=== PATIENT | female | born 1990 | race Caucasian/White ===

== ENCOUNTER 2020-10-22 11:42 | Emergency (ER) | payer BC, SELFPAY ==
[2020-10-22 11:55] VITALS: BP 128/81; PULSE 75; RESP 16; TEMP 36.5; O2SAT 98
--- NOTE | 2020-10-22 12:40 | ED.GENADULT ---
HPI - General Adult General Chief complaint: Ear <Chris Orona PA-C - Last Filed: 10/22/20 12:45> Stated complaint: Ear ache <DANIEL Fleming Last Filed: 10/22/20 12:45> Time Seen by Provider: 10/22/20 12:00 <DANIEL Fleming Last Filed: 10/22/20 12:45> Source: patient <Chris Orona PA-C - Last Filed: 10/22/20 12:45> Mode of arrival: ambulatory <DANIEL Fleming Last Filed: 10/22/20 12:45> Limitations: no limitations <DANIEL Fleming Last Filed: 10/22/20 12:45> History of Present Illness HPI narrative: Patient 30-year-old female who presents with intermittent right ear pain and congestion for the last month off and on has not seen anybody for this has been taking an antihistamine only notes aching pain to the right. Patient denies other URI symptoms does not appear to be distressed or uncomfortable on arrival <Chris Orona PA-C - Last Filed: 10/22/20 12:45> Related Data Home medications: Home Medications Medication Instructions Recorded Confirmed cetirizine [Zyrtec] 10 mg PO DAILY 10/22/20 <DANIEL Fleming Last Filed: 10/22/20 12:45> Allergies/adverse reactions: Allergies Allergy/AdvReac Type Severity Reaction Status Date / Time No Known Allergies Allergy Verified 10/22/20 11:58 <Chris Orona PA-C - Last Filed: 10/22/20 12:45> Review of Systems Review of Systems: All systems reviewed & are unremarkable except as noted in HPI and below <Chris Orona PA-C - Last Filed: 10/22/20 12:45> PMFSH Social History Social History: Social History Gender identity (if verbalized by the patient): Female <DANIEL Fleming Last Filed: 10/22/20 12:45> Exam Narrative: Exam Narrative: GENERAL: Well-appearing, well-nourished, and in no acute distress. HEAD: Normocephalic, atraumatic. EYES: PERRLA and EOMI. ENT: Nares clear, no rhinorrhea or epistaxis. Mucous membranes moist. Oropharynx without tonsillar hypertrophy exudate or other lesions. Bilateral TMs pearly mary nonbulging NECK: Supple. No adenopathy or masses. CHEST: Clear to auscultation. No respiratory distress. No wheezes rales or rhonchi HEART: Regular rate and rhythm. No murmur heard. SKIN: Warm, dry, no rash. NEURO: No focal deficits. Alert and oriented x3. PSYCH: Normal mood and affect. <Chris Orona PA-C - Last Filed: 10/22/20 12:45> Course Course Emergency Course: Patient in the room in no distress aware of case findings treatment plan diagnosis agreeing to follow with ENT and primary care felt appropriate for outpatient reevaluation <DANIEL Fleming Last Filed: 10/22/20 12:45> Vital Signs Vital signs: Vital Signs Temperature 36.5 C 10/22/20 11:55 Pulse Rate 75 10/22/20 11:55 Respiratory Rate 16 10/22/20 11:55 Blood Pressure 128/81 10/22/20 11:55 Pulse Oximetry 98 10/22/20 11:55 Temperature 37.2 C 10/22/20 13:28 Pulse Rate 78 10/22/20 13:28 Respiratory Rate 16 10/22/20 13:28 Blood Pressure 112/72 10/22/20 13:28 Pulse Oximetry 98 10/22/20 11:55 <DANIEL Fleming Last Filed: 10/22/20 12:45> Vital Signs Temperature 36.5 C 10/22/20 11:55 Pulse Rate 75 10/22/20 11:55 Respiratory Rate 16 10/22/20 11:55 Blood Pressure 128/81 10/22/20 11:55 Pulse Oximetry 98 10/22/20 11:55 Temperature 37.2 C 10/22/20 13:28 Pulse Rate 78 10/22/20 13:28 Respiratory Rate 16 10/22/20 13:28 Blood Pressure 112/72 10/22/20 13:28 Pulse Oximetry 98 10/22/20 11:55 <Karla Field MD - Last Filed: 10/22/20 13:55> Medical Decision Making MDM Narrative Medical decision making narrative: Patient in the room no distress presented with right ear pain no infection or other abnormalities have been seen <Chris Orona PA-C - Last Filed: 10/22/20 12:45> Vital S
[2020-10-22 13:28] VITALS: BP 112/72; PULSE 78; RESP 16; TEMP 37.2
== END 2020-10-22 13:32 | disposition home or self-care (01) ==
PROVIDERS: Emergency Provider Emergency Medicine
DX: H92.01 Otalgia, right ear (principal)
CPT/HCPCS: 99283

== ENCOUNTER 2020-12-15 15:23 | Emergency (ER) | payer BC, SELFPAY ==
--- NOTE | ~2020-12-15 | CT_ITS ---
EXAMINATION: CT brain & sinus wo con DATE: 12/15/2020 20:18 INDICATION: Frontal headache. TECHNIQUE: Computed tomography (CT) of the head was performed without intravenous contrast. CT of the paranasal sinuses was performed without intravenous contrast. The dose-length product was 832.33 mGy -cm. COMPARISON: None. FINDINGS: Head CT: There is no intracranial hemorrhage, acute infarction, or abnormal intracranial mass lesion. The vent ricles are normal in size. The mastoid air cells are normal. Sinuses CT: There is mild mucosal thickening in the maxillary sinuses. There is moderate mucosal thickening in th e ethmoid sinuses. There is near complete opacification of right frontal sinus and mild mucosal thick ening in left frontal sinus. There is sclerosis of the romeo of the right frontal sinus, consistent w ith chronic sinusitis. There is moderate mucosal thickening in left sphenoid sinus with dependent flu id. There is rightward deviation of the nasal septum. Right ostiomeatal unit is occluded at the maxil alexia ostium, infundibulum, and hiatus semilunaris. Left ostiomeatal unit is occluded at the maxillary ostium and infundibulum. There is a Nick cell on the left. Left middle turbinate is paradoxical. T here is pneumatization of the vertical lamina of the middle turbinates. IMPRESSION: 1. Normal brain. 2. Chronic sinusitis. Reviewed, dictated and finalized at location A. [employer]
[2020-12-15 16:43] VITALS: BP 141/96; PULSE 79; RESP 18; TEMP 36.4; O2SAT 100
[2020-12-15 20:35] LABS: Basophils Absolute Auto 0.1 K/mm3 (0.0-0.1); Basophils Percent Auto 0.6 % (0.2-1.2); Eosinophils Absolute Auto 0.3 K/mm3 (0-0.3); Eosinophils Percent Auto 2.4 % (0-4.4); Hematocrit 41.8 % (37.0-47.0); Hemoglobin 14.3 g/dL (12.0-15.0); Immature Granulocyte Absolute 0.04 K/mm3 (0.00-0.031); Immature Granulocyte Percent A 0.3 % (0-0.5); Lymphocytes Absolute Auto 2.64 K/mm3 (0.9-3.2); Lymphocytes Percent Auto 18.8 % (18.3-44.2); Mean Corpuscular HGB Conc 34.2 g/dl (32-36); Mean Corpuscular Hemoglobin 31.2 pg (26-34); Mean Corpuscular Volume 91.1 fl (80-100); Monocytes Percent Auto 7.1 % (2.6-8.5); Neutrophils Absolute Auto 9.9 K/mm3 (1.3-6.7); Neutrophils Percent Auto 70.8 % (45.5-73.1); Platelet Count Result 314 k/mm3 (150-375); Red Blood Count 4.59 M/mm3 (4.2-5.4); Red Cell Distribution Width 11.9 % (11.5-14.5)
--- NOTE | 2020-12-15 21:00 | ED.HA ---
HPI - Headache General Chief Complaint: Headache Stated Complaint: CT Scan Request from ENT Time Seen by Provider: 12/15/20 19:49 Source: patient Mode of arrival: ambulatory Limitations: no limitations History of Present Illness HPI Narrative: 30-year-old female Her complaining of frontal headaches This is been a recurrent problem for a while, that she intermittently sees ENT for She was in the office today and it was recommended that she should come to the ER to get a sinus CT scan so that it could be done well her sinuses were inflamed according to the patient She complains that she chronically has some greenish drainage and facial pain, the pain sometimes radiates to her ears, and that every time her ears are looked at they look fine She does take Zyrtec but does not take it reliably every day She does not have a fever or neck pain or any neurologic symptoms MD elicited complaint: headache Related Data Home Medications Medication Instructions Recorded Confirmed cetirizine [Zyrtec] 10 mg PO DAILY 10/22/20 12/15/20 Allergies Allergy/AdvReac Type Severity Reaction Status Date / Time No Known Allergies Allergy Verified 12/15/20 16:46 Review of Systems Review of Systems: All systems reviewed & are unremarkable except as noted in HPI and below Constitutional: Constitutional: Denies fever(s) and Denies weakness Eyes: Eyes: Denies no additional eye complaints and Denies change in vision ENT: Denies epistaxis and Reports nasal congestion Respiratory: Respiratory: Denies cough and Denies dyspnea Neurologic: Denies vertigo, Denies syncope, Denies focal weakness and Denies numbness [facility] Social History Social History (Updated 11/02/20 @ 13:28 by Jenni Slade MA) Smoking status: Never smoker Gender identity (if verbalized by the patient): Female Exam Const: General: no acute distress and alert Orientation/consciousness: patient oriented x3 HENMT: Head: normal to inspection Ears: TM's normal bilaterally General nose exam: Normal external nose present Face and sinus: sinus tenderness frontal and maxillary Mouth: Yes Normal oral and palatal mucosa present Eyes: Pupils: Equal, round and reactive pupils present EOM: EOMs intact bilaterally Neck: Neck: normal visual inspection and no lymphadenopathy Resp: Effort & Inspection: normal respiratory effort and not tachypneic Course Course Emergency Course: Discussed with patient, I would recommend lifelong antihistamines and have her discuss with her ENT any other further therapeutics Vital Signs Vital signs: Vital Signs Temperature 36.4 C 12/15/20 16:43 Pulse Rate 79 12/15/20 16:43 Respiratory Rate 18 12/15/20 16:43 Blood Pressure 141/96 H 12/15/20 16:43 Pulse Oximetry 100 12/15/20 16:43 Temperature 36.4 C 12/15/20 16:43 Pulse Rate 79 12/15/20 16:43 Respiratory Rate 18 12/15/20 16:43 Blood Pressure 141/96 H 12/15/20 16:43 Pulse Oximetry 100 12/15/20 16:43 MDM - Headache Lab Data Result diagrams: 12/15/20 20:31 Labs: Lab Results 12/15/20 Range/Units 20:31 WBC 14.0 H (4.5-10.0) K/mm3 RBC 4.59 (4.2-5.4) M/mm3 Hgb 14.3 (12.0-15.0) g/dL Hct 41.8 (37.0-47.0) % MCV 91.1 (80-100) fl MCH 31.2 (26-34) pg MCHC 34.2 (32-36) g/dl RDW 11.9 (11.5-14.5) % Plt Count 314 (150-375) k/mm3 MPV 9.0 (7.4-10.4) fl Immature Gran % (Auto) 0.3 (0-0.5) % Neut % (Auto) 70.8 (45.5-73.1) % Lymph % (Auto) 18.8 (18.3-44.2) % [place] % (Auto) 7.1 (2.6-8.5) % Eos % (Auto) 2.4 (0-4.4) % Baso % (Auto) 0.6 (0.2-1.2) % Lymph # (Auto) 2.64 (0.9-3.2) K/mm3 [place] # (Auto) 1.0 H (0.1-0.6) K/mm3 Eos # (Auto) 0.3 (0-0.3) K/mm3 Baso # (Auto) 0.1 (0.0-0.1) K/mm3 Abs Immat Gran (auto) 0.04 H (0.00-0.031) K/mm3 Absolute Neuts (auto) 9.9 H (1.3-6.7) K/mm3 Absolute Nucleated RBC 0.0 (0.0-0.012) K/mm3 Nucleated RBC % 0.0 (0.0-0.2) % Imaging Data Rad
[2020-12-15 21:16] VITALS: BP 128/89; PULSE 78; RESP 16; TEMP 36.8; O2SAT 98
== END 2020-12-15 21:17 | disposition home or self-care (01) ==
PROVIDERS: Emergency Provider Emergency Medicine; PCP Otolaryngology
DX: J32.9 Chronic sinusitis, unspecified (principal)
CPT/HCPCS: 36415; 70450; 70486; 85025; 99284

== ENCOUNTER → 2021-01-25 04:29 | Outpatient (CLI) | payer BC, SELFPAY ==
[2021-01-25 19:03] LABS: SARS-CoV-2 RNA PCR Negative
== END ==
PROVIDERS: Visit Provider Otolaryngology
DX: Z01.812 Encounter for preprocedural laboratory examination (principal); Z20.822 Contact with and (suspected) exposure to COVID-19
CPT/HCPCS: C9803; U0003; U0005

== ENCOUNTER 2021-01-28 01:19 | Day surgery (SDC) | payer BC, SELFPAY ==
[2021-01-13 15:08] VITALS: BMI 27.3
--- NOTE | 2021-01-27 09:17 | PM.IMHP ---
H&P: HPI History of Present Illness Date/Time: 01/27/21 09:17 30-year-old female presents for planned surgical procedures. Reports no new changes in symptoms or medical history. Chief Complaint: Nasal obstruction, septal deviation, inferior turbinate hypertrophy, chronic sinusitis Review of Systems Constitutional: Constitutional: Denies fatigue, Denies fever(s) and Denies lethargy Eyes: Eyes: Denies blurry vision and Denies change in vision ENT: Reports as per HPI Cardiovascular: Cardiovascular: Denies chest pain Respiratory: Respiratory: Denies cough Endocrine: Endocrine: Denies fatigue Hematologic/Lymphatic: Hematologic/Lymphatic: Denies easy bleeding, Denies easy bruising and Denies lymphadenopathy Allergic/Immunologic: Allergic/Immunologic: Denies seasonal rhinorrhea [facility] Social History Social History (Updated 11/02/20 @ 13:28 by Jenni Slade MA) Smoking status: Never smoker Alcohol intake: current Substance use: never Substance use type: does not use Gender identity (if verbalized by the patient): Female Spiritual care concerns: No Meds Home Medications and Allergies Home Medications Medication Instructions Recorded Confirmed Type fluticasone furoate [Flonase 2 spray INTRANASAL DAILY #5.9 ml 10/22/20 01/13/21 Rx Sensimist] cetirizine [Zyrtec] 10 mg PO DAILY #90 tablet 12/15/20 01/13/21 Rx Allergies Allergy/AdvReac Type Severity Reaction Status Date / Time No Known Allergies Allergy Verified 01/13/21 15:06 Exam Const: General: cooperative, healthy appearing, comfortable, well developed and alert HENMT: Head: normal to inspection, normocephalic and atraumatic Ears: hearing grossly normal bilaterally, external ears normal, TM's normal bilaterally and EAC's normal General nose exam: Normal external nose present, Normal nares present, No nasal polyps present and Other nasal findings present ( Septal deviation inferior turbinate hypertrophy) Face and sinus: normal facial exam Mouth: Yes Normal oral and palatal mucosa present, Yes lip normal, Yes tongue normal, Yes oropharynx normal and Yes moist mucous membranes Teeth and gingiva: dentition normal and gingiva normal Throat: posterior oropharynx normal, tonsils normal and uvula midline Eyes: General: appearance normal, both eyes and all related structures Periorbital: periorbital findings normal Eyelids: eyelids normal Conjunctivae: conjunctivae normal Sclera: sclerae normal Neck: Neck: normal visual inspection, full ROM and no lymphadenopathy Thyroid: thyroid normal Lymphatic: no lymphadenopathy noted Resp: Effort & Inspection: normal respiratory effort and able to speak in complete sentences Cardio: Jugular venous distension: no JVD Neuro: Cranial nerves: Yes CN's II-XII intact bilaterally Assessment and Plan Assessment and plan (1) Facial pressure: Code(s): R44.8 - Other symptoms and signs involving general sensations and perceptions Status: Acute Assessment and Plan: plan is for the OR for bilateral endoscopic sinus surgery including maxillary antrostomies total ethmoidectomies frontal sinusotomies and sphenoidotomies as well as endoscopic assisted septoplasty and inferior turbinate reduction. The risks were discussed in great detail including bleeding infection change in vision blindness damage to brain CSF leak carotid injury stroke septal perforation and the need for further procedures. The patient voiced understanding of these risks and agreed. (2) Facial pain: Code(s): R51.9 - Headache, unspecified Status: Acute (3) Rhinorrhea: Code(s): J34.89 - Other specified disorders of nose and nasal sinuses Status: Acute (4) Chronic sinusitis: Code(s): J32.9 - Chronic sinusitis, unspecified Status: Acute (5) Nasal septal deviation: Code(s): J34.2 - Deviated nasal septum Status: Acute (6) Hypertrophy of both inferior nasal turbinat
[2021-01-28] VITALS (13 sets, daily range): BP systolic 103–127; BP diastolic 46–83; PULSE 68–98; RESP 14–20; TEMP 36.2–36.5; O2SAT 94–100
--- NOTE | 2021-01-28 07:16 | WPDHPUPDATE1 ---
History and Physical Update Update Date/Time: 01/28/21 07:16 History and Physical has been reviewed, including an updated exam of the patient. There are NO changes in the patient's condition. Risks, benefits, and alternatives have been discussed and questions answered. Patient agrees to proceed with procedure.
[2021-01-28] MEDS: ACETAMINOPHEN 500 MG TABLET 1000 MG PO (08:27)
[2021-01-28] MEDS: LACTATED RINGERS 1,000 ML 30 ML IV CONT ×3 (08:30→13:56)
--- NOTE | 2021-01-28 08:37 | P.PNAN_ITS ---
Anes - Initial Pre Proc Eval Procedure: Operation Date: 01/28/21 09:30 Proposed Procedures p Image Guided Bilateral Inferior Turbinectomy, Maxillary Antrostomy, Total Ethmoidectomy, - Steve Prasad MD s Septoplasty - Steve Prasad MD Date/Time: 01/28/21 08:37 Surgeon: Steve Prasad MD Pre Op Diagnosis: chronic sinusitis Patient Data Age: 30 Gender: F Height: 5 ft 2 in Weight: 68 kg Allergies Allergy/AdvReac Type Severity Reaction Status Date / Time No Known Allergies Allergy Verified 01/28/21 08:17 Home Medications Medication Instructions Recorded Confirmed Type fluticasone furoate [Flonase 2 spray INTRANASAL DAILY #5.9 ml 10/22/20 01/28/21 Rx Sensimist] cetirizine [Zyrtec] 10 mg PO DAILY #90 tablet 12/15/20 01/28/21 Rx Patient hx anesthesia problems: none Family hx anesthesia problems: none [facility] Past Medical History Medical History (Updated 01/28/21 @ 08:43 by Damon Garrido MD) Healthy adult Social History Social History (Updated 11/02/20 @ 13:28 by Jenni Slade MA) Smoking status: Never smoker Alcohol intake: current Alcohol use details: ONCE EVERY 6 MONTHS Substance use: never Substance use type: does not use Living arrangements: with friend(s) Gender identity (if verbalized by the patient): Female Spiritual care concerns: No Anes - Eval Final PreProcedure Day of Procedure 01/28/21 08:37 Patient weight: normal Heart: regular rate and rhythm Lungs: clear to auscultation Airway: Mallampati scale class II Neurological: alert and oriented Last oral intake: >/= 8 hours ASA classification: I Emergent: no Anesthetic plan: proceed Anesthesia type and monitoring: general ETT and standard monitoring Informed Consent: The patient's anesthetic plan and its attendant risks and benefits were discussed with the patient/family/POA. Questions were solicited and answers provided to the satisfaction of the patient/family/POA.
[2021-01-28] MEDS: ceFAZolin 2 GM/D5W 50 ML 2 GM/50 ML BAG IVPB (09:21)
[2021-01-28] MEDS: OXYMETAZOLINE HCL 0.05% NAS 15 ML BTL (*BKC) 1 SPRAY NASAL (10:03)
[2021-01-28] MEDS: LIDO 1%/EPINEPHRINE 1:100,000 50 ML VIAL INFILTRATE (10:04)
[2021-01-28] MEDS: fentaNYL CITRATE INJ (*CRX) 100 MCG/2 ML VIAL 25 MCG IV PUSH ×5 (13:11→13:55)
--- NOTE | 2021-01-28 13:17 | P.OP_ITS ---
Procedure Note - Detailed Date of procedure: 01/28/21 Pre-op diagnosis: chronic sinusitis Nasal congestion Nasal obstruction Inferior turbinate hypertrophy Septal deviation Post-op diagnosis: same Procedure performed: 1. Endoscopic assisted septoplasty 2. Inferior turbinate reduction with outfracture submucosally 3. Endoscopic bilateral maxillary antrostomies 4. Endoscopic bilateral total ethmoidectomies 5. Endoscopic sphenoidotomies 6. Endoscopic frontal sinusotomies 7. Use of stereotactic image guidance Description of procedure: The patient was correctly identified and consent was verified in the preoperative holding area. The patient was then brought to the operating room and a time-out was performed. General anesthesia was induced and endotracheal tube was secured the patient's airway and taped to the left lower lip. The patient was then prepped and draped for the aforementioned procedure. Afrin-soaked pledgets were inserted into the bilateral nasal passages and allowed to sit for 5 minutes. 10 cc cc of 1% lidocaine with 1 100,000 parts epinephrine was then injected deep to the submucoperichondrial skis me into the submucoperichondrial septal plane and in the anterior inferior turbinates. The pledgets were removed and the image guidance was initiated. Under 0 degree endoscopic guidance the left middle turbinate was medialized with a [place]. Double ball tip probe with was used to perform an uncinectomy fracturing anteriorly. Backbiter was utilized to perform complete the uncinectomy. The left maxillary antrostomy was completed using micro debrider and straight through cut. Total ethmoidectomies performed with combination of microdebrider as well as Kerrison forceps. Sphenoid os was located using image guidance and entered with a J curette. [place] was utilized to widen it. Under 70 degree endoscopic guidance the frontal sinusotomy was completed and noted to be patent. Hemostasis was noted to be excellent. Similar procedures were performed on the right side following endoscopic septoplasty. The septoplasty was performed with a Nasim type incision on the left anterior nasal septum a left mucoperichondrial flap was dissected with no tear noted. Deviated septum from the left inferior and right posterior was performed with a combination of endoscopic scissors Jens Jensen forceps and Tisah forceps. Hemostasis was noted to be excellent. The anterior septal incision was closed with 3 interrupted 5 0 fast gut sutures. The middle turbinate anteriorly were removed during the frontal sinusotomies in a draf 2b fashion. There were cauterized with Bovie suction electrocautery. Novapak absorbable packing was placed lateral to the bilateral inferior turbinates stenting the medially as well as providing hemostasis. Vasques splints were placed with the airways removed and suctioned excuse me and sutured anteriorly using a 3 0 interrupted nylon suture. This marked the end of procedure. Care the patient was turned over to Anesthesiology. I performed all dictated portions. Surgeon: Steve Prasad MD Estimated blood loss (mL): 100 Packing: No Pathology: none sent Complications: No immediate complications Condition: stable Disposition: PACU
[2021-01-28] MEDS: ONDANSETRON INJ 4 MG/2 ML VIAL IV PUSH (14:19)
--- NOTE | 2021-01-28 15:00 | SUR.PHASEII ---
1445- Call to Dr. Sewell for anti nausea medications after 4MG IVP zofran given at 1419 with no relief to nausea. 1500- Obtained orders from Dr. Sewell for 25MG Benadryl IVP and scopolamine patch for patient's nausea at this time.
[2021-01-28] MEDS: diphenhydrAMINE HCl INJ 50 MG/ML VIAL 25 MG IV PUSH (15:09)
[2021-01-28] MEDS: SCOPOLAMINE 1.5 MG PATCH TRANSDERM (15:09)
[2021-01-28] MEDS: oxyCODONE HCL (*CRX) 5 MG TAB IR PO (15:57)
== END 2021-01-28 16:13 | disposition home or self-care (01) ==
PROVIDERS: Visit Provider Otolaryngology
PROC: (CPT 30520; principal; 2021-01-28 09:30)
PROC: (CPT 30520; 2021-01-28 09:30)
DX: J34.2 Deviated nasal septum (principal); J34.89 Other specified disorders of nose and nasal sinuses; J34.3 Hypertrophy of nasal turbinates; J32.9 Chronic sinusitis, unspecified; R51.9 Headache, unspecified
CPT/HCPCS: 30520; 30140; 31287; 31276; 61782; 31256; A9270; C9803; J0330; J0690; J1100; J1200; J2250; J2405; J2704; J3010; J7120; U0003; U0005

== ENCOUNTER 2021-02-25 09:40 | Emergency (ER) | payer BC, SELFPAY ==
[2021-02-25 09:58] VITALS: BP 107/68; PULSE 78; RESP 16; TEMP 36.6; O2SAT 99
--- NOTE | 2021-02-25 10:18 | ED.FEMALEGU ---
HPI - Female Genitourinary General Chief complaint: Urogenital-Female Stated complaint: UTI Time Seen by Provider: 02/25/21 10:18 Source: patient Mode of arrival: ambulatory Limitations: no limitations History of Present Illness HPI Narrative: Laura Ma is a 31 yo female with a PMH of sinusitis [facility] with complaints of a burning sensation on urination and difficulty urinating for the last day. She states the burning is really severe when she tries to urinate. she is on Augmentin from sinus surgery that was recently done, she will need some Diflucan at the end of all his antibiotics because she tends to get irritation in her genital area with use of antibiotics Related Data Home Medications Medication Instructions Recorded Confirmed amoxicillin-pot clavulanate 1 tablet PO BID 02/25/21 02/25/21 Allergies Allergy/AdvReac Type Severity Reaction Status Date / Time No Known Allergies Allergy Verified 02/25/21 10:14 Review of Systems Review of Systems: Narrative: CONSTITUTIONAL: Denies fever, chills, sweats. EYES: Denies visual changes, redness, discharge. ENT: Denies rhinorrhea, congestion, sore throat, otalgia. CARDIOVASCULAR: Denies chest pain, palpitations, edema. RESPIRATORY: Denies dyspnea, wheezing, cough GASTROINTESTINAL: Denies abdominal pain, nausea, vomiting, diarrhea. GENITOURINARY: has dysuria, hematuria, abnormal discharge SKIN: Denies rash or itching. NEUROLOGIC: Denies numbness, or focal weakness. PSYCHIATRIC: Denies anxiety or depression. [facility] Past Medical History Medical History Chronic sinusitis Healthy adult Social History Social History Smoking status: Never smoker Alcohol intake: current Substance use: never Substance use type: does not use Gender identity (if verbalized by the patient): Female Spiritual care concerns: No Comments At time of signature, I agree with nursing past medical, surgical, social and family history. There is no relevant family history pertinent to the presenting complaint. Exam Narrative: Exam Narrative: GENERAL: This is a well-nourished, well-developed patient, in mild distress. HEAD: normocephalic, atraumatic. EYES: Normal to get 8 out of here sclera clear/white. Vision is grossly intact. EARS: External ears normal, Hearing grossly intact. NOSE: External nose normal without nasal discharge, nares with redness, no rhinorrhea. THROAT: Mucous membranes moist, NECK: Neck supple, non-tender CARDIOVASCULAR: Regular rate and rhythm without murmurs, gallops, or rubs. RESPIRATORY: Clear to auscultation. Breath sounds equal bilaterally. No wheezes, rales, or rhonchi. GASTROINTESTINAL: Abdomen soft, non-tender, SKIN: warm, intact with no suspicious lesions or rash, good texture and turgor. NEURO: awake, alert, and oriented to person, place and time. There were no obvious focal neurologic abnormalities. Steady gait EXTREMITIES: Normal range of motion. BACK: Nontender without deformity Course Course Emergency Course: Patient here for symptoms of urinary tract infection including dysuria for the last 24 hours and she is unable to urinate without burning She is currently on Augmentin so she was started on Cipro for UTI and will give Diflucan at the end of the antibiotics to treat her vaginal irritation; she is also been instructed to get metronidazole [id number] if she has a lot of irritation prior to ending the antibiotic She is to push fluids - avoid irritants to urogenital area (wipes, etc) Vital Signs Vital signs: Vital Signs Temperature 97.8 F 02/25/21 09:58 Pulse Rate 78 02/25/21 09:58 Respiratory Rate 16 02/25/21 09:58 Blood Pressure 107/68 02/25/21 09:58 Pulse Oximetry 99 02/25/21 09:58 Temperature 97.8 F 02/25/21 09:58 Pulse Rate 78 02/25/21 09:58 Respiratory Rate 16
== END 2021-02-25 10:38 | disposition home or self-care (01) ==
PROVIDERS: Emergency Provider Nurse Practitioner
DX: N30.01 Acute cystitis with hematuria (principal)
CPT/HCPCS: 81003; 87086; 99213; G0463

== ENCOUNTER 2021-07-19 09:44 | Outpatient (CLI) | payer BC, SELFPAY | END 2021-07-19 09:45 | disposition home or self-care (01) | LOC: ANHAUDASC 09:47 | PROVIDERS: Visit Provider Otolaryngology | DX: H90.3 Sensorineural hearing loss, bilateral (principal) | CPT/HCPCS: 92557; 92567 ==

== ENCOUNTER 2021-09-09 11:11 | Emergency (ER) | payer BC, SELFPAY ==
[2021-09-09 11:49] VITALS: BP 122/72; PULSE 105; RESP 18; TEMP 37.1; O2SAT 99
[2021-09-09] MEDS: ONDANSETRON HCL ODT 4 MG TABLET 8 MG SUBLINGUAL (12:45)
[2021-09-09] MEDS: KETOROLAC (*BKC) 60 MG/2 ML VIAL IM (12:47)
--- NOTE | 2021-09-09 13:23 | ED.HA ---
HPI - Headache General Chief Complaint: Upper Respiratory Infection Stated Complaint: headache nausea Time Seen by Provider: 09/09/21 12:28 Source: patient, RN notes reviewed and old records reviewed Mode of arrival: ambulatory Limitations: no limitations History of Present Illness HPI Narrative: Patient presents today complaining of a headache since 3:00 this morning that is located in the frontal area with nausea, vomiting, and photophobia. She does have history of migraines. She was seen at her neurologist at [facility] 4 days ago. She was prescribed Topamax and Maxalt and these prescriptions were sent to her pharmacy. States that they were sent to a different pharmacy 20 minutes away and she has not yet been to pick them up as they were too far away, so she came here to [facility] for treatment instead of going to this pharmacy to pickle pumper her prescribed medications. States that this is not her worst headache ever. She currently rates her pain 10/10. She has been taking Tylenol, Excedrin, and aspirin. MD elicited complaint: migraine Related Data Home Medications Medication Instructions Recorded Confirmed rizatriptan mg 09/09/21 topiramate 09/09/21 Allergies Allergy/AdvReac Type Severity Reaction Status Date / Time No Known Allergies Allergy Verified 06/16/21 13:05 Review of Systems Review of Systems: CONSTITUTIONAL: Denies body aches, fever, chills, or sweats. EYES: Denies visual changes, redness, or discharge.+ Photophobia ENT: Denies rhinorrhea, congestion, sore throat, or otalgia. CARDIOVASCULAR: Denies chest pain, palpitations, or edema. RESPIRATORY: Denies cough or dyspnea. GASTROINTESTINAL: Denies abdominal pain, or diarrhea.+ Nausea and vomiting GENITOURINARY: Denies dysuria or hematuria. SKIN: Denies rash, itching, or wounds. MUSCULOSKELETAL: Denies back pain, joint pain, or myalgia. NEUROLOGIC: Denies numbness, tingling, or weakness.+ Headache PSYCH: Denies depression or anxiety. [facility] Past Medical History Medical History Chronic sinusitis Healthy adult Social History Social History Smoking status: Never smoker Alcohol intake: current Alcohol use details: ONCE EVERY 6 MONTHS Substance use: never Substance use type: does not use Gender identity (if verbalized by the patient): Female Spiritual care concerns: No Comments At time of signature, I have reviewed and agree with nursing past medical, surgical, social and family history unless otherwise noted. Please see nursing chart for further information. There is no relevant family history pertinent to the presenting complaint Exam Narrative: GENERAL: Well-appearing, well-nourished, and in no acute distress. HEAD: Normocephalic, atraumatic. EYES: EOMI. PERRL. No redness or drainage. Conjunctivae normal. ENT: Mucous membranes pink and moist. Nares clear. No rhinorrhea. TMs normal bilaterally. Throat normal. Uvula midline. NECK: Normal AROM. Supple. No lymphadenopathy. CHEST: No respiratory distress. EXTREMITIES: Normal range of motion. No edema. SKIN: Warm, dry, no rash. Capillary refill normal. Normal skin turgor. NEURO: No focal deficits. Alert and oriented x3. Gait steady. PSYCH: Normal affect. No signs of depression or anxiety. Course Course Emergency Course: 1326-states symptoms have improved after Toradol and Zofran. She is ready to be discharged. Vital Signs Vital signs: Vital Signs Temperature 98.8 F 09/09/21 11:49 Pulse Rate 105 H 09/09/21 11:49 Respiratory Rate 18 09/09/21 11:49 Blood Pressure 122/72 09/09/21 11:49 Pulse Oximetry 99 09/09/21 11:49 Temperature 98.8 F 09/09/21 11:49 Pulse Rate 105 H 09/09/21 11:49 Respiratory Rate 18 09/09/21 11:49 Blood Pressure 122/72 09/09/21 11:49 Pulse Oximetry 99 09/09/21 11:49 Reviewed. Pt
== END 2021-09-09 13:48 | disposition home or self-care (01) ==
PROVIDERS: Emergency Provider Nurse Practitioner
DX: G43.909 Migraine, unspecified, not intractable, without status migrainosus (principal)
CPT/HCPCS: 96372; 99213; A9270; G0463; J1885

== ENCOUNTER 2021-11-27 12:51 | Emergency (ER) | payer BC, SELFPAY ==
[2021-11-27 13:01] VITALS: BP 126/71; PULSE 82; RESP 16; TEMP 37.4; O2SAT 100
[2021-11-27 13:04] VITALS: BP 126/71; PULSE 82; RESP 16; TEMP 37.4; O2SAT 100
--- NOTE | 2021-11-27 13:47 | ED.GENADULT ---
HPI - General Adult General Chief complaint: Skin/Abscess/Foreign Body Stated complaint: sores on lips Source: patient Mode of arrival: ambulatory Limitations: no limitations History of Present Illness HPI narrative: Patient presents for evaluation of painful lesions to the left upper and lower lip since yesterday. She states she has a hx of herpes simplex infections in the past. She applied some carmex and abreva without improvement. No fever, chills, nausea, vomiting, difficulty breathing or swallowing. She does not smoke. She is sexually active with one female partner. No additional complaints or concerns. Related Data Home Medications Medication Instructions Recorded Confirmed rizatriptan 5 mg PO PRN PRN 09/09/21 11/27/21 topiramate 25 mg PO DIRECTED PRN 09/09/21 11/27/21 cetirizine 10 mg PO DAILY 11/27/21 11/27/21 Allergies Allergy/AdvReac Type Severity Reaction Status Date / Time No Known Allergies Allergy Verified 09/28/21 13:05 Review of Systems Review of Systems: CONSTITUTIONAL: Denies fever, chills, or sweats. EYES: Denies visual changes, redness, or discharge. ENT: Denies rhinorrhea, congestion, sore throat, or otalgia. Reports painful blistered lesions to left upper and lower lips CARDIOVASCULAR: Denies chest pain, palpitations, or edema. RESPIRATORY: Denies cough or dyspnea. GASTROINTESTINAL: Denies abdominal pain, nausea, vomiting, or diarrhea. GENITOURINARY: Denies dysuria or hematuria. SKIN: Denies rash or itching. MUSCULOSKELETAL: Denies back pain, joint pain, or myalgia. NEUROLOGIC: Denies headache, numbness, dizziness, or weakness. PSYCHIATRIC: Denies anxiety or depression. [facility] Past Medical History Medical History Chronic sinusitis Healthy adult Surgical History Surgical History No pertinent past surgical history Family History Family History (Updated 11/27/21 @ 13:52 by ALYSSA Suero, ARTIE) Father No pertinent past medical history Social History Social History Smoking status: Never smoker Alcohol intake: current Alcohol use details: ONCE EVERY 6 MONTHS Substance use: never Substance use type: does not use Gender identity (if verbalized by the patient): Female Spiritual care concerns: No Exam Narrative: GENERAL: Well-appearing, well-nourished, and in no acute distress. HEAD: Normocephalic, atraumatic. EYES: PERRLA and EOMI. ENT: Nares clear, no rhinorrhea or epistaxis. Mucous membranes moist. Several blistered lesions to left upper lip and left lower lip. Oropharynx without tonsillar hypertrophy exudate or other lesions. Bilateral TMs pearly mary nonbulging NECK: Supple. No adenopathy or masses. No carotid bruits or JVD CHEST: Clear to auscultation. No respiratory distress. No wheezes rales or rhonchi HEART: Regular rate and rhythm. No murmur heard. Normal peripheral pulses. ABDOMEN: Soft, nontender, nondistended, normal active bowel sounds. EXTREMITIES: Normal range of motion. No edema. SKIN: Warm, dry, no rash. NEURO: No focal deficits. Alert and oriented x3. PSYCH: Normal mood and affect. Course Course Emergency Course: This is a 31-year-old female who presented with complaints of blistered lesions left upper and lower lip with a known history of HSV. Will dc with valtrex. not checked as she is only sexually active with female partner. She should follow up outpatient for further evaluation and treatment and return for worsening symptoms. Pt in agreement with plan of care. Level of Care: Express Care Visit Vital Signs Vital signs: Vital Signs Temperature 37.4 C 11/27/21 13:01 Pulse Rate 82 11/27/21 13:01 Respiratory Rate 16 11/27/21 13:01 Blood Pressure 126/71 11/27/21 13:01 Pulse Oximetry 100 11/27/21 13:01 Temperature 3
== END 2021-11-27 14:00 | disposition home or self-care (01) ==
PROVIDERS: Emergency Provider Nurse Practitioner
DX: B00.1 Herpesviral vesicular dermatitis (principal)
CPT/HCPCS: 99213; G0463

== ENCOUNTER 2022-10-30 14:47 | Emergency (ER) | payer SELFPAY ==
[2022-10-30 14:50] VITALS: BP 127/96; PULSE 106; RESP 14; TEMP 37.2; O2SAT 95
--- NOTE | 2022-10-30 15:07 | ED.WOUNDLAC ---
HPI - Wound/Laceration General Chief Complaint: Wound/Laceration Stated Complaint: Laceratin To Left Wrist Time Seen by Provider: 10/30/22 15:07 Source: patient, RN notes reviewed and old records reviewed Mode of arrival: ambulatory Limitations: no limitations History of Present Illness HPI narrative: 32-year-old female presents to express care with reports of laceration on the inner aspect of her left wrist which occurred when she was using utility knife to open a bottle of chick fillet sauce. Patient has 2cm linear laceration with bleeding controlled. Patient reports that her tetanus is not up to date. Onset (ago): hour(s) (within past 1 hour) Location: other (inner left wrist) Extremity Location: Left: wrist Patient tetanus UTD: No Treatments prior to arrival: bandage Related Data Home Medications Medication Instructions Recorded Confirmed rizatriptan 5 mg tablet 5 mg PO PRN PRN Migraine Headache 09/09/21 11/27/21 topiramate 25 mg tablet 25 mg PO DIRECTED PRN Migraine 09/09/21 11/27/21 Headache cetirizine 10 mg tablet 10 mg PO DAILY 11/27/21 11/27/21 Allergies Allergy/AdvReac Type Severity Reaction Status Date / Time No Known Allergies Allergy Verified 09/28/21 13:05 Review of Systems Review of Systems: CONSTITUTIONAL: Denies fever, chills, or sweats. CARDIOVASCULAR: Denies chest pain, palpitations, or edema. RESPIRATORY: Denies cough or dyspnea. SKIN: Reports 2cm laceration to left inner wrist, full mobility of wrist and hand. MUSCULOSKELETAL: Denies musculoskeletal pain NEUROLOGIC: Denies numbness, or weakness. All systems reviewed & are unremarkable except as noted in HPI and below PMFSH Past Medical History Medical History Chronic sinusitis Healthy adult Surgical History Surgical History No pertinent past surgical history Family History Family History Father No pertinent past medical history Social History Social History Smoking status: Never smoker Alcohol intake: current Alcohol use details: ONCE EVERY 6 MONTHS Substance use: never Substance use type: does not use Gender identity (if verbalized by the patient): Female Spiritual care concerns: No Comments At time of signature, agree with nursing past medical, surgical, social and family history. There is no relevant family history pertinent to the presenting complaint Exam Narrative: GENERAL: Well-appearing, well-nourished, and in no acute distress. HEAD: Normocephalic, atraumatic. NECK: Supple. no lymphadenopathy CHEST: Clear to auscultation. No respiratory distress.SAO2 95% on room air HEART: Regular rate and rhythm. No murmur heard. Normal peripheral pulses. EXTREMITIES: Normal range of motion. No edema. SKIN: Warm, dry, no rash. Reports laceration to the left inner linear formation 2cm length with full mobility of wrist and hand denies any tingling or numbness to hand, strong radial pulse left wrist NEURO: No focal deficits. Alert and oriented x3. Course Course Level of Care: Express Care Visit Vital Signs Vital signs: Vital Signs Temperature 37.2 C 10/30/22 14:50 Pulse Rate 106 H 10/30/22 14:50 Respiratory Rate 14 10/30/22 14:50 Blood Pressure 127/96 H 10/30/22 14:50 Pulse Oximetry 95 10/30/22 14:50 Oxygen Delivery Room Air 10/30/22 14:50 Temperature 37.2 C 10/30/22 14:50 Pulse Rate 106 H 10/30/22 14:50 Respiratory Rate 14 10/30/22 14:50 Blood Pressure 127/96 H 10/30/22 14:50 Pulse Oximetry 95 10/30/22 14:50 Oxygen Delivery Room Air 10/30/22 14:50 Procedures Laceration left inner wrist: Date: 10/30/22 Time: 15:25 Site: other (inner wrist) Side (If applicable): left Size (cm): 2 Description: linear
[2022-10-30] MEDS: TETANUS,DIPHTHERIA,AC PERTUSSIS ADULT (0.5 ML) BOOSTRIX IM (15:27)
== END 2022-10-30 15:56 | disposition home or self-care (01) ==
PROVIDERS: Emergency Provider Registered Nurse
DX: S61.512A Laceration without foreign body of left wrist, initial encounter (principal); W26.0XXA Contact with knife, initial encounter; Z23 Encounter for immunization
CPT/HCPCS: 12011; 90471; 90715; 99213; G0463

== ENCOUNTER 2023-08-23 10:31 | Emergency (ER) | payer OTHER, SELFPAY ==
--- NOTE | ~2023-08-23 | CT_ITS ---
EXAMINATION: CT abdomen pelvis w con DATE: 08/23/2023 12:25 INDICATION: Bilateral flank pain. TECHNIQUE: Computed tomography (CT) of the abdomen and pelvis was performed with 100 mL Omnipaque 350 intravenous contrast. Automated exposure control and iterative reconstruction technique were employe d. The dose-length product was 203.46 mGy-cm. COMPARISON: None. FINDINGS: The visualized portions of the lung bases demonstrate mild atelectasis in right lower lobe. No pleural effusion. The heart size is normal. No pericardial effusion. The liver, gallbladder, sple en, pancreas, adrenal glands, and kidneys are normal. There are no dilated loops of bowel. The append ix is normal. There are no pathologically enlarged lymph nodes. There is no free intraperitoneal flui d. There is lumbar levoscoliosis. There are chronic bilateral L5 pars defects. IMPRESSION: 1. No etiology for the patient's symptoms. Reviewed, dictated and finalized at location E.
[2023-08-23 10:37] VITALS: BP 108/76; PULSE 79; RESP 16; TEMP 36.9; O2SAT 100
[2023-08-23 10:59] LABS: Appearance Urine Clear (Clear); Bacteria Urine None Seen /hpf; Bilirubin Urine Negative (Negative); Blood Urine 1+ (Negative); Color Urine Yellow (Yellow); Glucose Urine UA Negative (Negative); Ketones Urine Negative (Negative); Leukocyte Esterase Ur Negative LEU/UL (Negative); Nitrate Urine Negative (Negative); Non Pathogenic Casts 0-2; Protein Urine Negative (Negative); Specific Grav Ur 1.009 (1.001-1.035); Squamous Epithelial Cell Urine None seen /hpf (Few); Urobilinogen Urine 0.2 mg/dL (<2.0); WBC Urine 0-5 /hpf
--- NOTE | 2023-08-23 11:06 | ED.FEMALEGU ---
HPI - Female Genitourinary General Chief complaint: Urogenital-Female Stated complaint: kidney stone Time Seen by Provider: 08/23/23 10:56 History of Present Illness HPI Narrative: 33-year-old female reports for evaluation for flank pain x1 week. Patient states that the onset of symptoms, her pain would switch from the right and the left side, however for the past 4 days it seems to is localized to the left side. She went to her PCP who sent her to the ED for further evaluation due to concern for kidney stone. Patient states her pain is now in her left flank and worsened today. She also reports decreased frequency to urinate, but does state when she urinates, she empties her bladder fully. She denies dysuria or hematuria, fevers, vomiting or diarrhea. She does report some nausea earlier today. Denies history of kidney stones. Related Data Home Medications Medication Instructions Recorded Confirmed rizatriptan 5 mg tablet 5 mg PO PRN PRN Migraine Headache 09/09/21 11/27/21 topiramate 25 mg tablet 25 mg PO DIRECTED PRN Migraine 09/09/21 11/27/21 Headache cetirizine 10 mg tablet 10 mg PO DAILY 11/27/21 11/27/21 Allergies Allergy/AdvReac Type Severity Reaction Status Date / Time No Known Allergies Allergy Verified 08/23/23 10:32 Review of Systems Review of Systems: CONSTITUTIONAL: Denies fever, chills EYES: Denies visual changes, redness, or discharge. ENT: Denies rhinorrhea, congestion, sore throat, or otalgia. CARDIOVASCULAR: Denies chest pain, palpitations, or edema. RESPIRATORY: Denies cough or dyspnea. GASTROINTESTINAL: See HPI GENITOURINARY: See HPI SKIN: Denies rash or itching. MUSCULOSKELETAL: See HPI NEUROLOGIC: Denies headache, numbness, dizziness, or weakness. PSYCHIATRIC: Denies anxiety or depression. [facility] Past Medical History Medical History Chronic sinusitis Healthy adult Surgical History Surgical History No pertinent past surgical history Family History Family History Father No pertinent past medical history Social History Social History Smoking status: Never smoker Alcohol intake: current Alcohol use details: ONCE EVERY 6 MONTHS Substance use: never Substance use type: does not use Living arrangements: with friend(s) Gender identity (if verbalized by the patient): Female Spiritual care concerns: No Exam Narrative: GENERAL: Well-appearing, in no acute distress. Patient resting comfortably in exam bed. She is pleasant and conversational. HEAD: Normocephalic EYES: PERRLA ENT: Nares clear. Mucous membranes moist. Oropharynx without tonsillar hypertrophy exudate or other lesions. NECK: Supple. CHEST: No respiratory distress. Clear to auscultation, no adventitious breath sounds. HEART: Regular rate and rhythm. No murmur heard. Normal peripheral pulses. ABDOMEN: Normal active bowel sounds. Abdomen soft with mild tenderness in the left lower quadrant. No guarding, rebound or rigidity. Left-sided CVA tenderness. no overlying skin changes. BACK: No midline thoracolumbar spinous tenderness, step-offs or deformities. Tenderness to the left thoracic and lumbar paraspinous muscles extending into the left CVA. No overlying skin changes. EXTREMITIES: Normal range of motion. No edema. SKIN: Warm, dry, no rash. NEURO: No focal deficits. Alert and oriented x3. PSYCH: Normal mood and affect. Course Vital Signs Vital signs: Vital Signs Temperature 98.4 F 08/23/23 10:37 Pulse Rate 79 08/23/23 10:37 Respiratory Rate 16 08/23/23 10:37 Blood Pressure 108/76 08/23/23 10:37 Pulse Oximetry 100 08/23/23 10:37 Temperature 98.4 F 08/23/23 10:37 Pulse Rate 79 08/23/23 10:37 Respiratory Rate 16 08/23/23 10:37
[2023-08-23 11:19] LABS: Add Urine Microscopic? YES
[2023-08-23 11:31] VITALS: BP 135/78; PULSE 83; RESP 16; O2SAT 100
[2023-08-23] MEDS: SODIUM CHLORIDE 0.9% IV 1,000 ML 999 ML IV CONT (11:40)
[2023-08-23] MEDS: MORPHINE SULFATE (*CRX) 2 MG/ML INJ IV PUSH (11:40)
[2023-08-23] MEDS: ONDANSETRON INJ 4 MG/2 ML VIAL IV PUSH (11:41)
[2023-08-23 11:45] LABS: Basophils Absolute Auto 0.1 K/mm3 (0.0-0.1); Basophils Percent Auto 0.7 % (0.2-1.2); Eosinophils Absolute Auto 0.2 K/mm3 (0-0.3); Eosinophils Percent Auto 2.9 % (0-4.4); Hematocrit 41.3 % (37.0-47.0); Hemoglobin 13.8 g/dL (12.0-15.0); Immature Granulocyte Absolute 0.02 K/mm3 (0.00-0.031); Immature Granulocyte Percent A 0.2 % (0-0.5); Lymphocytes Absolute Auto 2.12 K/mm3 (0.9-3.2); Lymphocytes Percent Auto 25.9 % (18.3-44.2); Mean Corpuscular HGB Conc 33.4 g/dl (32-36); Mean Corpuscular Volume 95.8 fl (80-100); Mean Platelet Volume 8.6 fl (7.4-10.4); Monocytes Absolute Auto 0.5 K/mm3 (0.1-0.6); Monocytes Percent Auto 5.5 % (2.6-8.5); Neutrophils Absolute Auto 5.3 K/mm3 (1.3-6.7); Neutrophils Percent Auto 64.8 % (45.5-73.1); Platelet Count Result 253 k/mm3 (150-375); Red Blood Count 4.31 M/mm3 (4.2-5.4); Red Cell Distribution Width 11.5 % (11.5-14.5); White Blood Count 8.2 K/mm3 (4.5-10.0)
[2023-08-23 11:55] LABS: Alanine Aminotransferase 21 U/L (6-35); Albumin Level 4.9 g/dL (3.5-5.1); Alkaline Phosphatase 62 U/L (38-126); Anion Gap 7 mmol/L (8-16); Aspartate Amino Transferase 22 U/L (14-36); Bilirubin,Total 0.5 mg/dL (0.2-1.3); Blood Urea Nitrogen 15 mg/dL (7-17); Carbon Dioxide 28 mmol/L (22-30); Chloride 101 mmol/L (98-107); Estimated CRCL calculation 100 ml/min; Estimated Glomerular Filt Rate > 60; Glucose 100 mg/dL (65-110); Lipase 46 U/L (23-300); Potassium 3.9 mmol/L (3.4-5.0); Sodium 136 mmol/L (137-145)
[2023-08-23 12:00] VITALS: BP 121/73; PULSE 76; RESP 16; O2SAT 100
[2023-08-23 12:46] VITALS: BP 126/72; PULSE 78; RESP 19; TEMP 36.4; O2SAT 99
== END 2023-08-23 13:06 | disposition home or self-care (01) ==
PROVIDERS: Family Medicine; Emergency Provider Physician Assistant; PCP Emergency Medicine
DX: R10.9 Unspecified abdominal pain (principal); J32.9 Chronic sinusitis, unspecified
CPT/HCPCS: 36415; 74177; 80053; 81001; 81025; 83690; 85025; 96361; 96374; 96375; 99284; J2270; J2405; J7030; Q9967